=== PATIENT | female | born 1970 | race Caucasian/White ===

== ENCOUNTER → 2020-01-20 09:13 | Outpatient (CLI) | payer BC, SELFPAY ==
--- NOTE | 2020-01-20 09:26 | XR_ITS ---
PROCEDURE: XR KNEE RT 4V CLINICAL INDICATION: right knee pain COMPARISON: No exams were available for comparison FINDINGS: No fracture or dislocation. No lytic or blastic change. There is normal mineralization. Minimal osteoarthritic changes of all 3 compartments with small suprapatellar effusion. IMPRESSION: Mild osteoarthritis with small suprapatellar effusion Dictated by: Chris Balderas MD 01/20/2020 16:28 Chris Balderas MD in [facility] 01/20/2020 16:28
== END ==
PROVIDERS: PCP Family Medicine; Visit Provider Orthopaedic Surgery
DX: M25.561 Pain in right knee (principal)
CPT/HCPCS: 73564